=== PATIENT | female | born 1965 | race Caucasian/White ===

== ENCOUNTER → 2017-12-30 | Outpatient (CLI) | payer OTHER ==
[2014-09-28 09:10] VITALS: BP 189/98
[~2017-12-30] MED LIST: AMLO5TAB2 PO; CARV3.122 PO; CLON2TAB2 PO; FLUO10CA13 PO; LISI40TA PO; LORA-434 PO; POTA10CA PO; PRED20TA PO; TRAM50TA PO
--- NOTE | 2017-12-30 16:59 | RAD ---
Chest, PA and Lateral: Technique: PA and lateral views of the chest were obtained. History: Chest wall pain. Comparison: 09/28/2014. Findings: The heart and pulmonary vasculature appear within normal limits. Minimal left lung base atelectasis.. The pleural margins are clear. Impression: No acute chest process is seen. Electronically signed by: Walker Perez MD (12/30/2017 4:55 PM) [id number]
== END | disposition home or self-care (01) ==
LOC: RAD 16:09
PROVIDERS: ATTEND Physician Assistant Medical
DX: J98.11 Atelectasis (principal)
CPT/HCPCS: 71046

== ENCOUNTER 2018-03-24 18:20 | Observation (INO) | payer OTHER ==
[~2018-03-24] VITALS: Ht 154.9 cm; Wt 83.3 kg
[~2018-03-24 18:20] MED LIST changes: -CLON2TAB2 PO; +CLON2TAB9 PO; +LORA-254 PO; -LORA-434 PO
[2018-03-24] MEDS ORDERED: ASPIRIN 81 MG TAB.CHEW PO ONE (18:45)
[2018-03-24] MEDS ORDERED: ONDANSETRON PF 4 MG/2 ML VIAL. IV ONE (18:45)
[2018-03-24 19:10] LABS: BASO # 0.1 x10^3/uL (0.0-0.2); BASO % 1 % (0-3); EOS # 0.3 x10^3/uL (0.0-0.7); EOS % 4 % (0-3); HEMATOCRIT 31.6 % (36.0-47.0); HEMOGLOBIN 10.6 g/dL (12.0-15.5); LYMPH # 2.2 x10^3/uL (1.0-4.8); LYMPH % 30 % (24-48); MEAN CORPUSCULAR HEMOGLOBIN 30 pg (25-35); MEAN CORPUSCULAR HGB CONC 34 g/dL (31-37); MEAN CORPUSCULAR VOLUME 90 fL (79-100); MONO # 0.4 x10^3/uL (0.0-1.1); MONO % 6 % (0-9); NEUT # 4.4 x10^3uL (1.8-7.7); NEUT % 59 % (31-73); PLATELET COUNT 256 x10^3/uL (140-400); RED CELL DISTRIBUTION WIDTH 15.5 % (11.5-14.5); WHITE BLOOD COUNT 7.4 x10^3/uL (4.0-11.0)
[2018-03-24] MEDS: IV NORMAL SALINE 1,000ML 1,000 ML IV SCH ×3 (19:30→20:38)
[2018-03-24 19:32] LABS: ALBUMIN 3.3 g/dL (3.4-5.0); ALBUMIN/GLOBULIN RATIO 0.7 (1.0-1.7); ALK PHOS 119 U/L (46-116); ALT (SGPT) 54 U/L (14-59); ANION GAP 17 (6-14); AST (SGOT) 113 U/L (15-37); BLOOD UREA NITROGEN 15 mg/dL (7-20); BUN/CREATININE RATIO 17 (6-20); CALCIUM 9.9 mg/dL (8.5-10.1); CARBON DIOXIDE 20 mmol/L (21-32); CHLORIDE 100 mmol/L (98-107); CREATININE 0.9 mg/dL (0.6-1.0); GFR 65.8; GLUCOSE 196 mg/dL (70-99); MAGNESIUM 1.7 mg/dL (1.8-2.4); POTASSIUM 3.9 mmol/L (3.5-5.1); SODIUM 137 mmol/L (136-145); TOTAL BILIRUBIN 0.3 mg/dL (0.2-1.0); TOTAL PROTEIN 7.9 g/dL (6.4-8.2)
[2018-03-24] MEDS: NITROGLYCERIN SUBLINGUAL 0.4 MG BOTTLE OF 25. SL PRN (19:32)
--- NOTE | 2018-03-24 20:14 | RAD ---
PROCEDURE: PORTABLE CHEST 1V CLINICAL INDICATION: chest pain COMPARISON: 12/30/2017 FINDINGS: No pneumothorax identified. Cardiac and mediastinal contours unremarkable. No pulmonary consolidation or acute airspace disease. No acute osseous abnormalities identified. IMPRESSION: No pulmonary consolidation or acute airspace disease. Electronically signed by: Paulo Mo DO (03/24/2018 8:11 PM) [facility]
--- NOTE | 2018-03-24 20:34 | PHYS DOC ---
Past History Past Medical History: Anxiety, Bipolar, Hypertension, Renal Disease, Renal Failure, UTI, Other Past Surgical History: Hysterectomy, Other Smoking: Less than 1pk/day Alcohol Use: Rarely Drug Use: None, Cocaine Adult General Chief Complaint Chief Complaint: CHEST PAIN HPI HPI Patient is a 53 year old female who presents with complaint of chest pain. Patient states her symptoms have been present off and on over the past 4 days but states that it got much worse today. Patient states that the pain starts in her left shoulder and goes into her left chest. Patient describes pain as pressure. Patient rates her pain currently 6 out of 10. Patient states she has had associated diaphoresis and shortness of breath with her symptoms. Patient has history of diabetes, hypertension, and positive history of tobacco use. The patient has not taken any medications for her symptoms at this time. Patient denies any previous history of cardiac workup. Review of Systems Review of Systems Constitutional: Diaphoresis, denies fever or chills [] Eyes: Denies change in visual acuity, redness, or eye pain [] HENT: Denies nasal congestion or sore throat [] Respiratory: Shortness of breath[] Cardiovascular: Chest pain, denies edema[] GI: Denies abdominal pain, nausea, vomiting, bloody stools or diarrhea [] : Denies dysuria or hematuria [] Musculoskeletal: Denies back pain or joint pain [] Integument: Denies rash or skin lesions [] Neurologic: Denies headache, focal weakness or sensory changes [] All other systems were reviewed and found to be within normal limits, except as documented in this note. Current Medications Current Medications Current Medications Medications (Trade) Dose Ordered Sig/[facility] Start Time Stop Time Status Last Admin Dose Admin Aspirin (Children'S Aspirin) 324 mg 1X ONCE 03/24/18 18:45 03/24/18 18:48 DC 03/24/18 19:32 324 MG Fentanyl Citrate (Fentanyl 2ml Vial) 50 mcg PRN Q15MIN PRN 03/24/18 18:45 03/25/18 18:44 03/24/18 19:31 50 MCG Nitroglycerin (Nitrostat) 0.4 mg PRN Q5MIN PRN 03/24/18 18:45 03/25/18 18:44 03/24/18 19:32 0.4 MG Ondansetron HCl (Zofran) 4 mg 1X ONCE 03/24/18 18:45 03/24/18 18:48 DC 03/24/18 19:31 4 MG Sodium Chloride 1,000 ml @ 125 mls/hr Q8H 03/24/18 18:45 03/25/18 02:44 03/24/18 19:30 125 MLS/HR Allergies Allergies Allergies Coded Allergies Type Severity Reaction Last Updated Verified No Known Drug Allergies 03/27/14 No Physical Exam Physical Exam Constitutional: Alert, afebrile, diaphoretic, appears in mild discomfort. [] HENT: Normocephalic, atraumatic, bilateral external ears normal, oropharynx moist, no oral exudates, nose normal. [] Eyes: PERRLA, EOMI, conjunctiva normal, no discharge. [] Neck: Normal range of motion, no tenderness, supple, no stridor. [] Cardiovascular:Heart rate regular rhythm, no murmur [] Lungs & Thorax: Bilateral breath sounds clear to auscultation [] Abdomen: Bowel sounds normal, soft, no tenderness, no masses, no pulsatile masses. [] Skin: Warm, dry, no erythema, no rash. [] Back: No tenderness, no CVA tenderness. [] Extremities: No tenderness, no cyanosis, no clubbing, ROM intact, no edema. [] Neurologic: Alert and oriented X 3, normal motor function, normal sensory function, no focal deficits noted. [] Current Patient Data Vital Signs Vital Signs Date Time Temp Pulse Resp B/P (MAP) Pulse Ox O2 Delivery O2 Flow Rate FiO2 03/24/18 19:32 98 126/69 03/24/18 18:36 99.0 20 97 Lab Results Laboratory Tests Test 03/24/18 18:50 White Blood Count 7.4 x10^3/uL (4.0-11.0) Red Blood Count 3.50 x10^6/uL (3.50-5.40) Hemoglobin 10.6 g/dL (12.0-15.5) L Hematocrit 31.6 % (36.0-47.0) L Mean Corpuscular Volume 90 fL (79-100) Mean Corpuscular Hemoglobin 30 pg (25-35) Mean Corpuscular Hemoglobin Concent 34 g/dL (31-37) Red Cell Distribution Width 15.5 % (11.5-14.5) H Platelet Count 256 x10^3/uL (140-400) Neutrophils (%) (Auto) 59 % (31-73) Lymphocytes (%) (Auto) 30 % (24-48) Monocytes (%) (Auto) 6 % (0-9) Eosinophils (%) (Auto) 4 % (0-3) H Basophils (%) (Auto) 1 % (0-3) Neutrophils # (Auto) 4.4 x10^3uL (1.8-7.7) Lymphocytes # (Auto) 2.2 x10^3/uL (1.0-4.8) Monocytes # (Auto) 0.4 x10^3/uL (0.0-1.1) Eosinophils # (Auto) 0.3 x10^3/uL (0.0-0.7) Basophils # (Auto) 0.1 x10^3/uL (0.0-0.2) D-Dimer (Ayala) 0.31 mg/L (0.00-0.50) Sodium Level 137 mmol/L (136-145) Potassium Level 3.9 mmol/L (3.5-5.1) Chloride Level 100 mmol/L (98-107) Carbon Dioxide Level 20 mmol/L (21-32) L Anion Gap 17 (6-14) H Blood Urea Nitrogen 15 mg/dL (7-20) Creatinine 0.9 mg/dL (0.6-1.0) Estimated GFR (Cockcroft-Gault) 65.8 BUN/Creatinine Ratio 17 (6-20) Glucose Level 196 mg/dL (70-99) H Calcium Level 9.9 mg/dL (8.5-10.1) Magnesium Level 1.7 mg/dL (1.8-2.4) L Total Bilirubin 0.3 mg/dL (0.2-1.0) Aspartate Amino Transferase (AST) 113 U/L (15-37) H Alanine Aminotransferase (ALT) 54 U/L (14-59) Alkaline Phosphatase 119 U/L (46-116) H Creatine Kinase 33 U/L (26-192) Creatine Kinase MB (Mass) < 0.5 ng/mL (0.0-3.6) Creatine Kinase MB Relative Index 1.5 % (0-4) Troponin I Quantitative < 0.017 ng/mL (0-0.055) Total Protein 7.9 g/dL (6.4-8.2) Albumin 3.3 g/dL (3.4-5.0) L Albumin/Globulin Ratio 0.7 (1.0-1.7) L EKG EKG Interpreted by me: Heart rate 94, sinus rhythm, normal intervals, normal axis, T -wave inversions in the precordial leads V2 through V5 not present on previous EKG, no acute ST elevations or depressions[] Radiology/Procedures Radiology/[place] [address] IMAGING REPORT Signed PATIENT: GIAN ROSEN ACCOUNT: [id number] : 1965 LOCATION: ER AGE: 53 SEX: F EXAM STATUS: REG ER ORD. PHYSICIAN: JAJA SELBY MD REASON: chest pain PROCEDURE: PORTABLE CHEST 1V PROCEDURE: PORTABLE CHEST 1V CLINICAL INDICATION: chest pain COMPARISON: 12/30/2017 FINDINGS: No pneumothorax identified. Cardiac and mediastinal contours unremarkable. No pulmonary consolidation or acute airspace disease. No acute osseous abnormalities identified. IMPRESSION: No pulmonary consolidation or acute airspace disease. Electronically signed by: Paulo Mo DO (03/24/2018 8:11 PM) [facility] DICTATED AND SIGNED BY: PAULO MO DO DATE: 03/24/182007 CC: AJJA SELBY MD; ROBEL SHELTON ~ [] Course & Med Decision Making Course & Med Decision Making Pertinent Labs and Imaging studies reviewed. (See chart for details) HEART score is 6, placing patient in moderate risk category for major adverse cardiac event. The patient was treated with aspirin, nitroglycerin, and states that after treatment her pain has improved at this time. The patient will be admitted for rule out myocardial infarction. I spoke with Dr. Ness who accepted care of patient in hospital. Dragon Disclaimer Dragon Disclaimer This electronic medical record was generated, in whole or in part, using a voice recognition dictation system. Departure Departure: Impression: Primary Impression: Chest pain Additional Impressions: Hyperglycemia Hypertension Tobacco use Disposition: ADMITTED INPATIENT Admitting Physician: Darren Ness Condition: STABLE Referrals: ROBEL SHELTON (PCP) Problem Qualifiers Primary Impression: Chest pain Chest pain type: unspecified Qualified Codes: R07.9 - Chest pain, unspecified Additional Impressions: Hypertension Hypertension type: unspecified Qualified Codes: I10 - Essential (primary) hypertension JAJA SELBY MD Mar 24, 2018 20:34
[2018-03-24] MEDS ORDERED: ACETAMINOPHEN 325 MG TABLET PO PRN (20:45)
[2018-03-24] MEDS ORDERED: ONDANSETRON PF 4 MG/2 ML VIAL. IV PRN (20:45)
[2018-03-24 22:00] VITALS: BP 132/63
[2018-03-24 22:18] LABS: BILIRUBIN,URINE NEG (NEG); CLARITY,URINE HAZY; COLOR,URINE STRAW; GLUCOSE,URINE NEG (NEG)
[2018-03-24 22:19] LABS: BACTERIA,URINE FEW /HPF (0-FEW); NITRITE,URINE NEG (NEG); RBC,URINE RARE /HPF (0-2); SQUAMOUS EPITHELIAL CELL,UR FEW /LPF; UROBILINOGEN,URINE 0.2 mg/dL (0.2 mg/dL); WBC,URINE OCC /HPF (0-4)
--- NOTE | 2018-03-24 22:25 | EKG ---
[address] [address] Test Date: 2018-03-24 Test Time: 18:35:43 Pat Name: GIAN ROSEN Department: Room: [facility] 1 Gender: F [employer] Supervisor: : 1965 Requested By: JAJA SELBY Order Number: [id number] Reading MD: Wilmar Lr MD Measurements Intervals [place] Rate: 94 P: 1 NH: 138 QRS: 24 QRSD: 82 T: 61 QT: 326 QTc: 413 Interpretive Statements SINUS RHYTHM Electronically Signed On 03-25-2018 13:02:52 CDT by Wilmar Lr MD
[2018-03-25] MEDS ORDERED: LINA5TAB4 PO (00:53)
[2018-03-25] MEDS ORDERED: METF500T5 PO (00:53)
[2018-03-25] MEDS ORDERED: GEMF600T3 PO (00:53)
[2018-03-25] MEDS ORDERED: GLIM4TAB2 PO (00:53)
[2018-03-25] MEDS ORDERED: PRAV40TA2 PO (00:53)
[2018-03-25] MEDS ORDERED: INSU100I30 SQ (00:55)
[2018-03-25 02:00] VITALS: BP 103/49
[2018-03-25 06:00] VITALS: BP 108/61
[2018-03-25] MEDS: IV NORMAL SALINE 1,000ML 1,000 ML IV SCH (06:00)
[2018-03-25 06:07] LABS: CALCIUM 9.6 mg/dL (8.5-10.1); CREATININE 0.9 mg/dL (0.6-1.0); GFR 65.8; POTASSIUM 4.2 mmol/L (3.5-5.1)
[2018-03-25 06:08] LABS: BASO # 0.1 x10^3/uL (0.0-0.2); BASO % 1 % (0-3); EOS # 0.3 x10^3/uL (0.0-0.7); EOS % 5 % (0-3); HEMOGLOBIN 9.7 g/dL (12.0-15.5); LYMPH % 31 % (24-48); MEAN CORPUSCULAR HEMOGLOBIN 30 pg (25-35); MEAN CORPUSCULAR HGB CONC 33 g/dL (31-37); MEAN CORPUSCULAR VOLUME 91 fL (79-100); MONO # 0.5 x10^3/uL (0.0-1.1); MONO % 7 % (0-9); NEUT # 3.6 x10^3uL (1.8-7.7); NEUT % 56 % (31-73); PLATELET COUNT 229 x10^3/uL (140-400); RED CELL DISTRIBUTION WIDTH 15.5 % (11.5-14.5); WHITE BLOOD COUNT 6.5 x10^3/uL (4.0-11.0)
[2018-03-25] MEDS ORDERED: DEXTROSE 50% 25 GM / 50ML DISP.SYRIN. IV PRN (07:00)
[2018-03-25] MEDS ORDERED: GEMFIBROZIL 600 MG TABLET. PO SCH (08:15)
[2018-03-25] MEDS ORDERED: metFORMIN 500 MG TABLET PO SCH (08:15)
[2018-03-25] MEDS ORDERED: FLUoxetine HCL 20 MG CAPSULE PO SCH (09:00)
[2018-03-25] MEDS ORDERED: CARVEDILOL 3.125 MG TABLET PO SCH (09:00)
[2018-03-25] MEDS ORDERED: INSULIN GLARGINE 300 UNITS/3 ML INSULN.PEN. SQ SCH ×2 (09:00→21:00)
[2018-03-25] MEDS ORDERED: GLIMEPIRIDE 2 MG TABLET PO SCH (09:00)
[2018-03-25] MEDS ORDERED: LINAGLIPTIN 5 MG TABLET PO SCH (09:00)
[2018-03-25 10:46] VITALS: BP 139/62
--- NOTE | 2018-03-25 12:07 | HP ---
ADMIT DATE: 03/24/2018 HISTORY OF PRESENT ILLNESS: The patient is a 53-year-old female patient who came to the Emergency Room complaining of left-sided chest pain, mostly around her left shoulder and the left side of the chest. She described the pain as a pressure that has been present off and on over the last 4 days that got worse and therefore, she came to the Emergency Room for further evaluation. She denied any nausea or vomiting. Denied any diaphoresis. Did complain of some shortness of breath. Denied any cough, phlegm or hemoptysis. She has never had similar symptoms like this before, has never had previous heart attack. The pain is not aggravated by exertion or change in position or moving her left upper extremity. She was evaluated in the Emergency Room. She has had her first set of cardiac enzymes that showed a troponin to be less than 0.017. Her EKG showed that she was in normal sinus rhythm at a heart rate of 94 beats per minute with T-wave inversion in the precordial leads, V2, 3, 5, not present on previous EKG, but no acute ST segment elevation or depression. The patient was admitted to do 2 more sets of cardiac enzymes and to consult the Cardiology team. PAST MEDICAL HISTORY: Significant for type 2 diabetes, hypertension, hyperlipidemia. She stated that she has had an episode of acute kidney failure that required hemodialysis about 3-4 years ago at [facility] after which her kidney function has improved. PAST SURGICAL HISTORY: Significant for tonsillectomy, tubal ligation, and total abdominal hysterectomy. ALLERGIES: She has no known drug allergies. MEDICATIONS: She is currently on following medications: She is on gemfibrozil 600 mg twice a day, pravastatin 40 mg at bedtime, carvedilol 3.125 mg twice a day with meals, fluoxetine 60 mg daily, metformin 500 mg twice a day, linagliptin or Tradjenta 5 mg tablet once a day. She is on Tresiba 20 units daily and glimepiride 4 mg daily. FAMILY HISTORY: She is adopted. Does not know her biological parents. SOCIAL HISTORY: She is . She has 4 daughters and 2 sons. She smokes a pack in a week's time. She used to drink alcohol more, but now occasionally. She does not smoke marijuana anymore. 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 REVIEW OF SYSTEMS: The patient denied any blurring of vision, cataract, glaucoma or macular degeneration. Denied any earache, tinnitus or sensorineural deafness. Denied any nosebleeds, stuffy nose or postnasal drip. Denied any sore throat, sore tongue, toothache, hoarseness of voice or difficulty swallowing. Denied any nausea, vomiting, diarrhea or constipation. Denied any hematemesis, melena or hematochezia. Denied any dysuria, frequency or hematuria. Did complain of left-sided chest pain, but denied any orthopnea or paroxysmal nocturnal dyspnea. Denied any cough, phlegm or hemoptysis. PHYSICAL EXAMINATION: GENERAL: On arrival to the Emergency Room, she looked well and was clearly in no apparent respiratory distress. She was slightly pale, but no jaundice, cyanosis, or thyromegaly. No jugular venous distension. No lower limb edema. VITAL SIGNS: Her heart rate was 102, blood pressure 122/59, temperature was 98.6, respiratory rate was 22, and oxygen saturation was 95% on room air. HEAD, EYES, EARS, NOSE AND THROAT: Showed normocephalic, atraumatic. NECK: Supple. HEART: Showed normal first and second heart sounds. No gallop, rub or murmur. CHEST: Clear to auscultation. No crepitation or rhonchi. ABDOMEN: Slightly distended, soft, nontender. NEUROLOGIC: She was awake, alert, responding appropriately. Cranial nerves intact. EXTREMITIES: She moves extremities without difficulty. She ambulates without assistance or assistive devices. LABORATORY DATA: On admission showed a white cell count of 7400, hemoglobin 10.6, hematocrit 31.6, MCV 90 and platelet count 256,000 with normal manual differential. Serum sodium was 137, potassium 3.9, chloride 100, bicarbonate 20, anion gap of 17, BUN 15, creatinine 0.9, estimated GFR was 66 mL per minute. Her glucose 196, calcium was 9.9, magnesium was 1.7. Total bilirubin and ALT normal. AST and alkaline phosphatase slightly elevated. Her total protein was 7.9, albumin 3.3. First set of cardiac enzymes showed troponin to be less than 0.017. Her D-dimer was 0.31 mg/dL. Urinalysis was essentially unremarkable. ASSESSMENT AND PLAN: This is a 53-year-old female patient with multiple risk factors for coronary artery disease including diabetes, hypertension, and hyperlipidemia. She is a smoker. She came with fairly atypical left-sided chest pain, mostly around her left shoulder and upper part of the left chest that is not related to exertion, it is not aggravated by changes in position or moving her left upper extremity. In fact, it has not responded to nitroglycerin, but responded to fentanyl and makes it more likely to be musculoskeletal. Her first set of cardiac enzyme was normal. We will do 2 more sets of cardiac enzyme and consult the Cardiology team. JT NOVA MD DR: TESSA/chico JOB#: [id number] / [id number]
--- NOTE | 2018-03-25 13:07 | PDOC ---
PROVIDER NOTE PROVIDER NOTE PROVIDER NOTE Cardiology consultation note Reason for consultation: Chest pain History of present illness: 53-year-old woman coming into the hospital in the setting of left shoulder pain. Denies any previous cardiac history. No exertional angina, dyspnea, orthopnea or PND. No syncope or palpitations.She denied any nausea or vomiting. Denied any diaphoresis. Did complain of some shortness of breath. No change with position or exertion. Past medical history notable for diabetes, hypertension dyslipidemia SOCIAL HISTORY: She is . She has 4 daughters and 2 sons. She smokes a pack in a week's time. She used to drink alcohol more, but now occasionally. She does not smoke marijuana anymore. 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 Meds reviewed. Family history noncontributory Review systems negative for 10 out of 14 systems reviewed unless otherwise mentioned above in history of present illness The patient appeared well nourished and normally developed. Head exam is unremarkable. No scleral icterus or corneal arcus noted. Neck is without jugular venous distension, thyromegaly, or carotid bruits. Carotid upstrokes are brisk bilaterally. Lungs are clear to auscultation and percussion. Cardiac exam reveals the PMI to be normally sized and situated. Rhythm is regular. First and second heart sounds normal. No murmurs, rubs or gallops. Abdominal exam reveals normal bowel sounds, no masses, no organomegaly and no aortic enlargement. Extremities are nonedematous and both femoral and pedal pulses are normal. Msk: No traumua, she has significant pain to palpation of the AC joint left side Neuro: No focal deficits Diagnostic studies: EKG is unremarkable LDL 166 Enzymes negative 3 Impression: 1. Noncardiac chest pain 2. Hypertension 3. Dyslipidemia 4. Diabetes Recommendations: 1. We'll treat her left shoulder pain with conservative management (rest, ice etc). If this does not improve her symptoms over the next few days then could consider outpatient stress testing in light of her risk factors. Given his consultation. Okay to discharge later today. EMILY ALEXIS MD Mar 25, 2018 13:07
--- NOTE | 2018-03-25 17:48 | DS ---
DATE OF DISCHARGE: 03/25/2018 HISTORY OF PRESENT ILLNESS: The patient is a 53-year-old female patient, who was admitted with the left-sided chest pain that has been ongoing for the last few days. It is not exertional. Denied any shortness of breath, orthopnea, paroxysmal nocturnal dyspnea. Denied any diaphoresis, nausea or vomiting. The pain is not worsened by exertion, change in position or moving her left upper extremity. She was admitted and has had 3 sets of cardiac enzymes that were negative and ruled out myocardial infarction. She was seen by the automotive service professional, who basically recommended to discharge the patient and to consider alteration of lifestyle for risk management adjustment and that she could have an outpatient stress test in the light of her risk factors. The patient was discharged home to continue on Tylenol for pain management. PHYSICAL EXAMINATION: GENERAL: On examining her, she looked well and was clearly in no apparent respiratory distress. No pallor, jaundice, cyanosis, or thyromegaly. No jugular venous distension. No limb edema. VITAL SIGNS: Her heart rate was 68, blood pressure was 139/62, temperature was 98.5, respiratory rate was 20, and oxygen saturation was 97%. HEAD, EYES, EARS, NOSE AND THROAT: Showed normocephalic, atraumatic. NECK: Supple. HEART: Showed normal first and second heart sound, no gallop, rub or murmur. CHEST: Clear to auscultation. No crepitation or rhonchi. ABDOMEN: Distended, soft, nontender. No guarding or rigidity. No organomegaly. All hernial orifice intact. Bowel sounds normal. NEUROLOGIC: She is awake, alert, responding appropriately. All cranial nerves intact. She moves extremities without difficulty. She ambulates without assistance or assistive devices. LABORATORY DATA: This morning showed a serum sodium 137, potassium 4.2, chloride 102, bicarbonate 27, anion gap of 8, BUN 17, creatinine 0.9, estimated GFR was 66 mL per minute. Her glucose 172, calcium was 9.6. She has 3 sets of cardiac enzymes that ruled out myocardial infarction. Her white cell count was 6500, hemoglobin 10, hematocrit 30, MCV 91, and platelet count 229,000. MEDICATIONS: She was discharged home to continue on her carvedilol 3.125 mg twice a day, fluoxetine for Prozac 60 mg once a day, gemfibrozil 600 mg twice a day, glimepiride 4 mg daily. She is on Tresiba, FlexTouch 20 units subcutaneously daily, linagliptin for Tradjenta 5 mg once a day, metformin 500 mg twice a day, Pravastatin 40 mg at bedtime. FINAL DISCHARGE DIAGNOSES: Chest pain, probably musculoskeletal, does not seem to be cardiac. OTHER MEDICAL PROBLEMS: Include hypertension, hyperlipidemia, type 2 diabetes, has a previous history of acute kidney injury, required hemodialysis and her kidney function has since improved and her kidney function is back to normal. JT NOVA MD DR: TESSA/chico JOB#: [id number] / [id number]
[2018-03-25] MEDS ORDERED: PRAVASTATIN 20 MG TABLET. PO SCH (21:00)
== END 2018-03-25 15:32 | disposition home or self-care (01) ==
LOC: ER 18:20 → INTOOBSV 20:23 → ICU 20:23
PROVIDERS: ADMIT Internal Medicine; ATTEND Internal Medicine
DX: R07.89 Other chest pain (principal); E11.9 Type 2 diabetes mellitus without complications; I10 Essential (primary) hypertension; E78.5 Hyperlipidemia, unspecified; F17.200 Nicotine dependence, unspecified, uncomplicated; Z87.440 Personal history of urinary (tract) infections; Z90.710 Acquired absence of both cervix and uterus
CPT/HCPCS: 36415; 71045; 80048; 80053; 81001; 82553; 82947; 83735; 84484; 85025; 85379; 87641; 93005; 96374; 96375; 96376; 99285; G0378; J2405; J3010; 96361; G0379; J1815; J7030

== ENCOUNTER 2018-06-01 12:08 | Emergency (ER) | payer OTHER ==
[~2018-06-01 12:08] MED LIST changes: -AMLO5TAB2 PO; +AMLO5TAB7 PO; +GEMF600T4 PO; +GLIM4TAB2 PO; +INSU100I30 SQ; +LINA5TAB4 PO; +METF500T16 PO; +PRAV40TA2 PO
[2018-06-01] MEDS ORDERED: IV NORMAL SALINE 1,000ML 1,000 ML IV ONE (12:30)
[2018-06-01 12:46] LABS: BASO # 0.1 x10^3/uL (0.0-0.2); BASO % 1 % (0-3); EOS # 0.3 x10^3/uL (0.0-0.7); EOS % 5 % (0-3); HEMATOCRIT 37.3 % (36.0-47.0); HEMOGLOBIN 12.7 g/dL (12.0-15.5); LYMPH # 1.5 x10^3/uL (1.0-4.8); LYMPH % 25 % (24-48); MEAN CORPUSCULAR HEMOGLOBIN 30 pg (25-35); MEAN CORPUSCULAR HGB CONC 34 g/dL (31-37); MEAN CORPUSCULAR VOLUME 89 fL (79-100); MONO # 0.4 x10^3/uL (0.0-1.1); MONO % 7 % (0-9); NEUT # 3.7 x10^3uL (1.8-7.7); NEUT % 62 % (31-73); PLATELET COUNT 303 x10^3/uL (140-400); RED CELL DISTRIBUTION WIDTH 14.1 % (11.5-14.5)
--- NOTE | 2018-06-01 12:54 | PHYS DOC ---
Past History Past Medical History: Anxiety, Bipolar, Depression, Diabetes, High Cholesterol , Hypertension, Renal Disease, Renal Failure, UTI, Other Past Surgical History: Hysterectomy, Tonsillectomy, Tubal ligation Smoking: Less than 1pk/day Alcohol Use: Rarely Drug Use: None, Cocaine Adult General Chief Complaint Chief Complaint: OVERDOSE HPI HPI 53-year-old female presents with concern for accidental medication overdose. The patient woke up this morning and took her pills and then took her kids to school. After she came back she forgot that she took her pills and took a second round of pills. She took 2 doses of the following medications: Trajenta 5 mg, fluoxetine 60 mg, gemfibrozil 600 mg, carvedilol 3.125 mg, glimepiride 4 mg, will certain 25 mg, metformin 500 mg. Patient denies any intentional overdose. She called her PCP who gave her the option of coming to the emergency room to be checked out or staying at home to see if she became symptomatic. She elected to come the emergency room. Patient states she is feeling well at this time. Her blood sugar was greater than 200 on arrival. She has no other complaints. Review of Systems Review of Systems Constitutional: Denies fever or chills [] Eyes: Denies change in visual acuity, redness, or eye pain [] HENT: Denies nasal congestion or sore throat [] Respiratory: Denies cough or shortness of breath [] Cardiovascular: No additional information not addressed in HPI [] GI: Denies abdominal pain, nausea, vomiting, bloody stools or diarrhea [] : Denies dysuria or hematuria [] Musculoskeletal: Denies back pain or joint pain [] Integument: Denies rash or skin lesions [] Neurologic: Denies headache, focal weakness or sensory changes [] Endocrine: Denies polyuria or polydipsia [] All other systems were reviewed and found to be within normal limits, except as documented in this note. Current Medications Current Medications Current Medications Medications (Trade) Dose Ordered Sig/Wei Start Time Stop Time Status Last Admin Dose Admin Sodium Chloride 1,000 ml @ 1,000 mls/hr 1X ONCE 06/01/18 12:30 06/01/18 13:29 06/01/18 12:42 1,000 MLS/HR Allergies Allergies Allergies Coded Allergies Type Severity Reaction Last Updated Verified No Known Drug Allergies 03/27/14 No Physical Exam Physical Exam Constitutional: Well developed, obese, well nourished, no acute distress, non- toxic appearance. [] HENT: Normocephalic, atraumatic, bilateral external ears normal, oropharynx moist, no oral exudates, nose normal. [] Eyes: PERRLA, EOMI, conjunctiva normal, no discharge. [] Neck: Normal range of motion, no tenderness, supple, no stridor. [] Cardiovascular:Heart rate regular rhythm, no murmur [] Lungs & Thorax: Bilateral breath sounds clear to auscultation [] Abdomen: Bowel sounds normal, soft, no tenderness, no masses, no pulsatile masses. [] Skin: Warm, dry, no erythema, no rash. [] Back: No tenderness, no CVA tenderness. [] Extremities: No tenderness, no cyanosis, no clubbing, ROM intact, no edema. [] Neurologic: Alert and oriented X 3, normal motor function, normal sensory function, no focal deficits noted. [] Psychologic: Affect normal, judgement normal, mood anxious. [] Current Patient Data Vital Signs Vital Signs Date Time Temp Pulse Resp B/P (MAP) Pulse Ox O2 Delivery O2 Flow Rate FiO2 06/01/18 12:08 98.2 98 18 99 Room Air EKG EKG [] Radiology/Procedures Radiology/Procedures [] Course & Med Decision Making Course & Med Decision Making Pertinent Labs and Imaging studies reviewed. (See chart for details) The patient's labs are unremarkable except for an elevated blood sugar. Her blood pressure has remained stable during her time in the ED. I believe the patient can be safely discharged at this time. If she has any new or worsening symptoms develop, she will return to the emergency room. The patient is in agreement with this plan. [] Dragon Disclaimer Dragon Disclaimer This electronic medical record was generated, in whole or in part, using a voice recognition dictation system. Departure Departure: Referrals: ROBEL SHELTON (PCP) LESLEY LARSEN DO Jun 01, 2018 12:54
[2018-06-01 12:59] LABS: ALBUMIN 3.7 g/dL (3.4-5.0); ALBUMIN/GLOBULIN RATIO 0.7 (1.0-1.7); CALCIUM 10.3 mg/dL (8.5-10.1); GFR 58.2; POTASSIUM 4.1 mmol/L (3.5-5.1); TOTAL BILIRUBIN 0.4 mg/dL (0.2-1.0); TOTAL PROTEIN 9.1 g/dL (6.4-8.2)
[2018-06-01 14:15] VITALS: BP 125/68
== END 2018-06-01 14:19 | disposition home or self-care (01) ==
LOC: ER 12:08
DX: E11.65 Type 2 diabetes mellitus with hyperglycemia (principal); T43.221A Poisoning by selective serotonin reuptake inhibitors, accidental (unintentional), initial encounter; T46.6X1A Poisoning by antihyperlipidemic and antiarteriosclerotic drugs, accidental (unintentional), initial encounter; T44.7X1A Poisoning by beta-adrenoreceptor antagonists, accidental (unintentional), initial encounter; T38.3X1A Poisoning by insulin and oral hypoglycemic [antidiabetic] drugs, accidental (unintentional), initial encounter; F41.9 Anxiety disorder, unspecified; F31.9 Bipolar disorder, unspecified; E78.00 Pure hypercholesterolemia, unspecified; I10 Essential (primary) hypertension; N28.9 Disorder of kidney and ureter, unspecified; F17.200 Nicotine dependence, unspecified, uncomplicated; Y92.89 Other specified places as the place of occurrence of the external cause
CPT/HCPCS: 36415; 80053; 82947; 85025; 96360; 96361; 99285-25; J7030

== ENCOUNTER 2020-01-27 04:32 | Emergency (ER) | payer OTHER ==
[~2020-01-27] VITALS: Ht 154.9 cm; Wt 81.1 kg
[~2020-01-27 04:32] MED LIST changes: +AMLO5TAB10 PO; -AMLO5TAB7 PO; -CARV3.122 PO; +CARV3.1230 PO; -GEMF600T4 PO; +GEMF600T8 PO; -GLIM4TAB2 PO; +GLIM4TAB8 PO
--- NOTE | 2020-01-27 04:57 | PHYS DOC ---
Past History Past Medical History: Anxiety, Bipolar, Depression, Diabetes, High Cholesterol, Hypertension, Renal Disease, Renal Failure, UTI, Other (LESLEY LARSEN DO) Past Surgical History: Hysterectomy, Tonsillectomy, Tubal ligation (LESLEY LARSEN DO) Smoking: Less than 1pk/day Alcohol Use: Occasionally Drug Use: None, Cocaine (LESLEY LARSEN DO) General Adult EDM: Chief Complaint: CHEST PAIN HPI: HPI: 55-year-old female presents with chest pain and rapid heartbeat. The patient woke up out of sleep around 3 AM and felt like she had a very rapid heartbeat. She also had a light pressure/cramping sensation in the left side of her chest. This persisted for at least several minutes. Her heart rate now feels normal, but she still having intermittent episodes of pain that lasts for a few minutes. She describes them as mild. She was just really worried when she woke up and thought she should get evaluated. Patient has hypertension and diabetes. No history of heart disease or heart attacks. She does admit that she has had episodes similar to this that are less severe. It always seems to happen at night and she feels a rapid heartbeat when she first wakes up. No diagnosis of arrhythmia. She denies fever chills. She has been feeling more fatigued in general lately. She just had her dose of losartan doubled 2 weeks ago. They also changed her insulin around. (LESLEY LARSEN DO) Review of Systems: Review of Systems: Constitutional: Denies fever or chills Eyes: Denies change in visual acuity HENT: Denies nasal congestion or sore throat Respiratory: Denies cough or shortness of breath Cardiovascular: Chest pain, rapid heartbeat GI: Denies abdominal pain, nausea, vomiting, bloody stools or diarrhea : Denies dysuria Musculoskeletal: Denies back pain or joint pain Integument: Denies rash Neurologic: Denies headache, focal weakness or sensory changes Endocrine: Denies polyuria or polydipsia Lymphatic: Denies swollen glands Psychiatric: Denies depression or anxiety (LESLEY LARSEN DO) Heart Score: HEART Score for Chest Pain: HEART Score for Chest Pain Response (Comments) Value History Slighlty/Non-Suspicious 0 ECG Normal 0 Age >45 - < 65 1 Risk Factors 1 or 2 Risk Factors 1 Troponin < Normal Limit 0 Total 2 Risk Factors: Risk Factors: DM, Current or recent (<one month) smoker, HTN, HLP, family history of CAD, obesity. Risk Scores: Score 0 - 3: 2.5% MACE over next 6 weeks - Discharge Home Score 4 - 6: 20.3% MACE over next 6 weeks - Admit for Clinical Observation Score 7 - 10: 72.7% MACE over next 6 weeks - Early Invasive Strategies (LESLEY LARSEN DO) HEART Score for Chest Pain: HEART Score for Chest Pain Response (Comments) Value History Slighlty/Non-Suspicious 0 ECG Normal 0 Age >45 - < 65 1 Risk Factors >3 Risk Factors or Hx CAD 2 Troponin < Normal Limit 0 Total 3 Allergies: Allergies: Allergies Coded Allergies Type Severity Reaction Last Updated Verified No Known Drug Allergies 03/27/14 No (LESLEY LARSEN DO) Physical Exam: PE: Constitutional: Well developed, obese, well nourished, no acute distress, non- toxic appearance. [] HENT: Normocephalic, atraumatic, bilateral external ears normal, oropharynx [address], no oral exudates, nose normal. [] Eyes: PERRLA, EOMI, conjunctiva normal, no discharge. [] Neck: Normal range of motion, no tenderness, supple, no stridor. [] Cardiovascular: Heart rate 90, regular rhythm, no murmur [] Lungs & Thorax: Bilateral breath sounds clear to auscultation [] Abdomen: Bowel sounds normal, soft, no tenderness, no masses, no pulsatile masses. [] Skin: Warm, dry, no erythema, no rash. [] Back: No tenderness, no CVA tenderness. [] Extremities: No tenderness, no cyanosis, no clubbing, ROM intact, no edema. [] Neurologic: Alert and oriented X 3, normal motor function, normal sensory function, no focal deficits noted. [] Psychologic: Affect normal, judgement normal, mood normal. [] (LESLEY LARSEN DO) PE: Constitutional: Well developed, well nourished, no acute distress, non-toxic appearance HENT: Normocephalic, atraumatic Eyes: Conjunctiva normal, no discharge Neck: Normal range of motion, no tenderness, supple Cardiovascular: Heart rate normal, regular rhythm Lungs & Thorax: Bilateral breath sounds clear to auscultation, no wheezing Abdomen: Soft, no tenderness Skin: Warm, dry, no erythema, no rash Extremities: No tenderness, ROM intact, no edema Neurologic: Alert and oriented X 3, no focal deficits noted Psychologic: Affect normal, judgment normal (PB MELLO DO) Current Patient Data: Vital Signs: Vital Signs Date Time Temp Pulse Resp B/P (MAP) Pulse Ox O2 Delivery O2 Flow Rate FiO2 01/27/20 04:46 98.2 102 20 139/90 (106) 97 Room Air (LESLEY LARSEN DO) EKG: EKG: Sinus rhythm, rate 96, normal axis, no ST elevations or depressions. [] (LESLEY LARSEN DO) Radiology/Procedures: Radiology/Procedures: [] (LESLEY LARSEN DO) Course & Med Decision Making: Course & Med Decision Making Pertinent Labs and Imaging studies reviewed. (See chart for details) The patient's labs are significant for slightly elevated anion gap 16. She also with a blood sugar over 450. Her EKG is unremarkable. Her troponin is negative. I will give her 10 units of insulin IV as well as a liter of normal saline. Her urinalysis is negative for infection. Her CBC is normal. If the patient's blood sugar rapidly improved, I believe she could be discharged home. We will just have to wait and see. I am signing the patient out to Dr. Mello at 0600 for further management. He will determine her final disposition. [] (LESLEY LARSEN DO) Course & Med Decision Making 0600- Sign out received from Dr. Larsen for patient who presents with chest pain and found to be hyperglycemic. Labs and imaging reviewed. Troponin WNL. CXR stable. EKG without acute process. HEART score 3. Hyperglycemia also noted. Insulin and IVF hydration provided with interval improvement. Recheck glucose with improvement. Patient seen and evaluated by myself. Patient stable for discharge with outpatient follow-up with PCP/nanotechnician. Spa Director/Finance referral provided. Discussed findings and plan with patient, who acknowledges understanding and agreement. (PB MELLO DO) Cassidy Disclaimer: Cassidy Disclaimer: This electronic medical record was generated, in whole or in part, using a voice recognition dictation system. (LESLEY LARSEN DO) Departure Departure: Impression: Primary Impression: Hyperglycemia due to type 2 diabetes mellitus Qualified Codes: E11.65 - Type 2 diabetes mellitus with hyperglycemia; Z79.4 - residential (current) use of insulin Additional Impression: Chest pain Qualified Codes: R07.9 - Chest pain, unspecified Disposition: 01 HOME/RESIDENCE PRIOR TO ADM Condition: STABLE Referrals: ROBLE SHELTON (PCP) EMILY ALEXIS MD Patient Instructions: Chest Pain (Nonspecific), [id number], Diet - 2000 Calorie Diabetic, Hyperglycemia, [id number] Additional Instructions: Increase fluid hydration and strict adherence to diabetic diet. Follow with your PCP as previously scheduled. Justification of Admission: Justification of Admission: Justification of Admission Dx: N/A (LESLEY LARSEN DO) Justification of Admission Dx: N/A (PB MELLO DO) LESLEY LARSEN DO Jan 27, 2020 04:57 PB MELLO DO Jan 27, 2020 06:25
--- NOTE | 2020-01-27 05:13 | RAD ---
AP chest. HISTORY: Chest pain AP view was taken of the chest. Lungs are clear. Heart is normal in size. There is no pleural effusion. IMPRESSION: 1. No acute chest disease. Electronically signed by: Stiven Vela MD (01/27/2020 5:10 AM) [id number]
[2020-01-27 05:24] LABS: BASO # 0.1 x10^3/uL (0.0-0.2); BASO % 1 % (0-3); EOS # 0.1 x10^3/uL (0.0-0.7); EOS % 2 % (0-3); HEMATOCRIT 41.5 % (36.0-47.0); HEMOGLOBIN 14.1 g/dL (12.0-15.5); LYMPH # 2.4 x10^3/uL (1.0-4.8); LYMPH % 43 % (24-48); MEAN CORPUSCULAR HEMOGLOBIN 31 pg (25-35); MEAN CORPUSCULAR HGB CONC 34 g/dL (31-37); MEAN CORPUSCULAR VOLUME 91 fL (79-100); MONO # 0.2 x10^3/uL (0.0-1.1); MONO % 4 % (0-9); NEUT # 2.8 x10^3uL (1.8-7.7); NEUT % 50 % (31-73); PLATELET COUNT 235 x10^3/uL (140-400); RED BLOOD COUNT 4.57 x10^6/uL (3.50-5.40); RED CELL DISTRIBUTION WIDTH 13.9 % (11.5-14.5); WHITE BLOOD COUNT 5.6 x10^3/uL (4.0-11.0)
[2020-01-27 05:30] LABS: CLARITY,URINE CLEAR; COLOR,URINE STRAW; GLUCOSE,URINE 500 mg/dL (NEG)
[2020-01-27 05:30] LABS: CALCIUM 10.6 mg/dL (8.5-10.1); CREATININE 1.1 mg/dL (0.6-1.0); GFR 51.8; POTASSIUM 3.4 mmol/L (3.5-5.1)
[2020-01-27 05:31] LABS: BACTERIA,URINE FEW /HPF (0-FEW); BILIRUBIN,URINE NEG (NEG); NITRITE,URINE NEG (NEG); RBC,URINE OCC /HPF (0-2); SQUAMOUS EPITHELIAL CELL,UR FEW /LPF; UROBILINOGEN,URINE 0.2 mg/dL (0.2 mg/dL); WBC,URINE OCC /HPF (0-4)
[2020-01-27 05:36] LABS: ALBUMIN 3.3 g/dL (3.4-5.0); ALBUMIN/GLOBULIN RATIO 0.7 (1.0-1.7); TOTAL BILIRUBIN 0.5 mg/dL (0.2-1.0); TOTAL PROTEIN 8.1 g/dL (6.4-8.2)
[2020-01-27] MEDS ORDERED: KETOROLAC 30 MG/ML VIAL. IVP ONE (05:45)
[2020-01-27] MEDS ORDERED: INSULIN REGULAR 100 UNIT/ML 3ML VIAL. IV ONE (05:45)
[2020-01-27] MEDS ORDERED: IV NORMAL SALINE 1,000ML 1,000 ML IV ONE (06:00)
[2020-01-27 06:17] VITALS: BP 129/57
--- NOTE | 2020-01-27 18:20 | EKG ---
[address] [address] Test Date: 2020-01-27 Test Time: 04:38:53 Pat Name: GIAN ROSEN Department: Room: Gender: F Tester Sound: : 1965 Requested By: LESLEY LARSEN Order Number: [id number] Reading MD: Measurements Intervals [place] Rate: 96 P: 38 LA: 152 QRS: 29 QRSD: 88 T: 43 QT: 354 QTc: 454 Interpretive Statements SINUS RHYTHM LEFT ATRIAL ABNORMALITY ABNORMAL ECG RI6.02 No previous ECG available for comparison
== END 2020-01-27 06:30 | disposition home or self-care (01) ==
LOC: ER 04:32
DX: E11.65 Type 2 diabetes mellitus with hyperglycemia (principal); R07.89 Other chest pain; E11.22 Type 2 diabetes mellitus with diabetic chronic kidney disease; I12.9 Hypertensive chronic kidney disease with stage 1 through stage 4 chronic kidney disease, or unspecified chronic kidney disease; N18.9 Chronic kidney disease, unspecified; F41.9 Anxiety disorder, unspecified; F31.9 Bipolar disorder, unspecified; F17.200 Nicotine dependence, unspecified, uncomplicated; Z87.440 Personal history of urinary (tract) infections; Z79.4 Long term (current) use of insulin
CPT/HCPCS: 36415; 71045; 80053; 81001; 82947; 84484; 85025; 93005; 96361; 96374; 96375; 99285; J1815; J1885; J7030

== ENCOUNTER 2020-01-30 17:07 | Emergency (ER) | payer OTHER ==
[~2020-01-30] VITALS: Ht 154.9 cm; Wt 81.1 kg
[2020-01-30 17:10] VITALS: BP 134/80
--- NOTE | 2020-01-30 17:25 | PHYS DOC ---
Past History Past Medical History: Anxiety, Bipolar, Depression, Diabetes, High Cholesterol, Hypertension, Renal Disease, Renal Failure, UTI, Other (MIRZA ASHER MD) Past Surgical History: Hysterectomy, Tonsillectomy, Tubal ligation (MIRZA ASHER MD) Smoking: Less than 1pk/day Alcohol Use: Occasionally Drug Use: None, Cocaine (MIRZA ASHER MD) General Adult EDM: Chief Complaint: BLOOD SUGAR PROBLEM HPI: HPI: Patient presents to the emergency department for evaluation. She has a history of diabetes, among other health problems, and states that she had been on 3 oral hypoglycemic medications as well as a long-acting insulin. However, about a year ago, her insurance company changed, and her medications were no longer covered and she has neither taken any of her oral diabetes medications, or checked her blood sugar for approximately a year. She states that she reestablish care with her PCP on Tuesday and had a blood sugar that was over 400. In addition to her long-acting insulin, which she reports intermittent com pliance with, her doctor added a short acting insulin which was supposed to be called into the patient's pharmacy, but the patient states that there was no prescription available at the pharmacy, and the patient states her blood sugar has been running between the upper 300s in the upper 400s for the past 2 days. Other than the polyuria, which has been ongoing for a while, she has not had any other complaints. She denies any chest pain, headache, vision changes, numbness, or weakness. She has had increasing anxiety, relating to her high blood sugar, as she is worried about the long-term effects. There are no alleviating or exacerbating factors to her symptoms. (MIRZA ASHER MD) Review of Systems: Review of Systems: Constitutional: Denies fever or chills Eyes: Denies change in visual acuity HENT: Denies nasal congestion or sore throat Respiratory: Denies cough or shortness of breath Cardiovascular: Denies chest pain or edema GI: Denies abdominal pain, nausea, vomiting, bloody stools or diarrhea : Denies dysuria Musculoskeletal: Denies back pain or joint pain Integument: Denies rash Neurologic: Denies headache, focal weakness or sensory changes Endocrine: Reports polyuria and polydipsia Lymphatic: Denies swollen glands Psychiatric: Denies depression. Reports increased anxiety (MIRZA ASHER MD) Heart Score: Risk Factors: Risk Factors: DM, Current or recent (<one month) smoker, HTN, HLP, family history of CAD, obesity. Risk Scores: Score 0 - 3: 2.5% MACE over next 6 weeks - Discharge Home Score 4 - 6: 20.3% MACE over next 6 weeks - Admit for Clinical Observation Score 7 - 10: 72.7% MACE over next 6 weeks - Early Invasive Strategies (MIRZA ASHER MD) Allergies: Allergies: Allergies Coded Allergies Type Severity Reaction Last Updated Verified No Known Drug Allergies 03/27/14 No (MIRZA ASHER MD) Physical Exam: PE: PHYSICAL EXAM: CONSTITUTIONAL: Well developed, well nourished HEAD: normocephalic, atraumatic EENT: PERRL, EOMI. Conjunctivae normal color, sclerae non-icteric; moist mucous membranes. NECK: Supple, non-tender; no meningismus. LUNGS: Lungs CTA, breathing even and unlabored. Normal air movement. HEART: Regular rate and rhythm, no murmur CHEST: No deformity; non-tender ABDOMEN: The abdomen is soft, and non-tender, no masses or bruits. EXTREM: Normal ROM; no deformity, no calf tenderness. Normal pulses palpable in all extremities. There is no pedal edema. SKIN: No rash; no diaphoresis NEURO: Alert; normal speech and cognition; CN's grossly intact; strength grossly intact without focal deficit. BACK: No CVA TTP. PSYCHIATRIC: Mildly anxious affect. (MIRZA ASHER MD) Current Patient Data: Labs: Laboratory Tests Test 01/30/20 17:12 Glucose (Fingerstick) 411 mg/dL (70-99) H (MIRZA ASHER MD) Labs: Laboratory Tests Test 01/30/20 17:12 01/30/20 17:30 01/30/20 17:50 Glucose (Fingerstick) 411 mg/dL White Blood Count 6.1 x10^3/uL Red Blood Count 4.40 x10^6/uL Hemoglobin 13.7 g/dL Hematocrit 40.4 % Mean Corpuscular Volume 92 fL Mean Corpuscular Hemoglobin 31 pg Mean Corpuscular Hemoglobin Concent 34 g/dL Red Cell Distribution Width 13.9 % Platelet Count 211 x10^3/uL Neutrophils (%) (Auto) 58 % Lymphocytes (%) (Auto) 33 % Monocytes (%) (Auto) 5 % Eosinophils (%) (Auto) 3 % Basophils (%) (Auto) 1 % Neutrophils # (Auto) 3.5 x10^3uL Lymphocytes # (Auto) 2.0 x10^3/uL Monocytes # (Auto) 0.3 x10^3/uL Eosinophils # (Auto) 0.2 x10^3/uL Basophils # (Auto) 0.1 x10^3/uL Sodium Level 132 mmol/L Potassium Level 4.0 mmol/L Chloride Level 96 mmol/L Carbon Dioxide Level 20 mmol/L Anion Gap 16 Blood Urea Nitrogen 9 mg/dL Creatinine 1.0 mg/dL Estimated GFR (Cockcroft-Gault) 57.8 BUN/Creatinine Ratio 9 Glucose Level 513 mg/dL Calcium Level 8.9 mg/dL Total Bilirubin 0.4 mg/dL Aspartate Amino Transf (AST/SGOT) 129 U/L Alanine Aminotransferase (ALT/SGPT) 111 U/L Alkaline Phosphatase 163 U/L Total Protein 7.8 g/dL Albumin 3.2 g/dL Albumin/Globulin Ratio 0.7 Acetone Level Neg Urine Collection Type Unknown Urine Color Yellow Urine Clarity Clear Urine pH 6.5 Urine Specific [place] 1.010 Urine Protein 30 mg/dl Urine Glucose (UA) >=1000 mg/dL Urine Ketones (Stick) Neg mg/dL Urine Blood Trace Urine Nitrite Neg Urine Bilirubin Neg Urine Urobilinogen Dipstick 0.2 mg/dL Urine Leukocyte Esterase Neg Urine RBC Rare /HPF Urine WBC Rare /HPF Urine Squamous Epithelial Cells Occ /LPF Urine Bacteria 0 /HPF Current Medications Medications (Trade) Dose Ordered Sig/Wei Route PRN Reason Start Time Stop Time Status Last Admin Dose Admin Sodium Chloride 1,000 ml @ 1,000 mls/hr 1X ONCE IV 01/30/20 17:30 01/30/20 18:29 DC 01/30/20 17:31 Sodium Chloride 1,000 ml @ 1,000 mls/hr 1X ONCE IV 01/30/20 17:30 01/30/20 18:29 DC 01/30/20 17:45 Insulin Human Regular (HumuLIN R VIAL) 5 unit 1X ONCE IV 01/30/20 17:30 01/30/20 17:31 DC 01/30/20 17:45 (YASIR PATEL DO) EKG: EKG: [] (MIRZA ASHER MD) Radiology/Procedures: Radiology/Procedures: [] (MIRZA ASHER MD) Course & Med Decision Making: Course & Med Decision Making Pertinent Labs and Imaging studies reviewed. (See chart for details) [] 6:00 PM: Patient care was turned over to Dr. Patel at shift change, pending lab results and final disposition, and glucose recheck. Return precautions were discussed in detail. (MIRZA ASHER MD) Course & Med Decision Making 1800 Care of patient assumed at shift change. Awaiting results of labs (YASIR PATEL DO) Dragon Disclaimer: Dragon Disclaimer: This electronic medical record was generated, in whole or in part, using a voice recognition dictation system. (MIRZA ASHER MD) Dragon Disclaimer: 1900 stable and blood sugar currently 272. Patient stable for close follow-up with the doctor. She will be given both short and long-acting diabetic oral therapy. Patient active awake and alert. Patient does not in DKA (YASIR PATEL DO) Departure Departure: Impression: Primary Impression: Hyperglycemia due to diabetes mellitus Disposition: HOME/RESIDENCE PRIOR TO ADM Condition: STABLE Referrals: ROBEL SHELTON (PCP) Patient Instructions: Hyperglycemia, [id number] Additional Instructions: Your actual blood sugar initially was 513. After fluids and insulin your sugar was under 300. See your doctor about ongoing better blood sugar control. Justification of Admission: Justification of Admission: Justification of Admission Dx: N/A (MIRZA ASHER MD) MIRZA ASHER MD Jan 30, 2020 17:25 YASIR PATEL DO Jan 30, 2020 18:00
[2020-01-30] MEDS ORDERED: INSULIN REGULAR 100 UNIT/ML 3ML VIAL. IV ONE (17:30)
[2020-01-30] MEDS ORDERED: IV NORMAL SALINE 1,000ML 1,000 ML IV ONE ×2 (17:30)
[2020-01-30 17:56] LABS: BASO # 0.1 x10^3/uL (0.0-0.2); BASO % 1 % (0-3); EOS # 0.2 x10^3/uL (0.0-0.7); EOS % 3 % (0-3); HEMATOCRIT 40.4 % (36.0-47.0); HEMOGLOBIN 13.7 g/dL (12.0-15.5); LYMPH % 33 % (24-48); MEAN CORPUSCULAR HEMOGLOBIN 31 pg (25-35); MEAN CORPUSCULAR HGB CONC 34 g/dL (31-37); MEAN CORPUSCULAR VOLUME 92 fL (79-100); MONO # 0.3 x10^3/uL (0.0-1.1); MONO % 5 % (0-9); NEUT # 3.5 x10^3uL (1.8-7.7); NEUT % 58 % (31-73); PLATELET COUNT 211 x10^3/uL (140-400); RED CELL DISTRIBUTION WIDTH 13.9 % (11.5-14.5); WHITE BLOOD COUNT 6.1 x10^3/uL (4.0-11.0)
[2020-01-30 18:04] LABS: CALCIUM 8.9 mg/dL (8.5-10.1); GFR 57.8
[2020-01-30 18:10] LABS: ALBUMIN 3.2 g/dL (3.4-5.0); ALBUMIN/GLOBULIN RATIO 0.7 (1.0-1.7); TOTAL BILIRUBIN 0.4 mg/dL (0.2-1.0)
[2020-01-30 18:23] LABS: BILIRUBIN,URINE NEG (NEG); CLARITY,URINE CLEAR; COLOR,URINE YELLOW; GLUCOSE,URINE >=1000 mg/dL (NEG)
[2020-01-30 18:24] LABS: BACTERIA,URINE 0 /HPF (0-FEW); NITRITE,URINE NEG (NEG); RBC,URINE RARE /HPF (0-2); SQUAMOUS EPITHELIAL CELL,UR OCC /LPF; UROBILINOGEN,URINE 0.2 mg/dL (0.2 mg/dL); WBC,URINE RARE /HPF (0-4)
[2020-01-30 18:29] LABS: TOTAL PROTEIN 7.8 g/dL (6.4-8.2)
== END 2020-01-30 19:05 | disposition home or self-care (01) ==
LOC: ER 17:07
DX: E11.65 Type 2 diabetes mellitus with hyperglycemia (principal); E11.9 Type 2 diabetes mellitus without complications; E78.00 Pure hypercholesterolemia, unspecified; I10 Essential (primary) hypertension; F17.200 Nicotine dependence, unspecified, uncomplicated; F41.9 Anxiety disorder, unspecified; F31.9 Bipolar disorder, unspecified; Z87.440 Personal history of urinary (tract) infections
CPT/HCPCS: 36415; 80053; 81001; 82010; 82947; 85025; 96361; 96374; 99283; J1815; J7030

== ENCOUNTER 2020-02-08 21:30 | Observation (INO) | payer OTHER ==
[~2020-02-08] VITALS: Ht 154.9 cm; Wt 81.5 kg
[2020-02-08] MEDS ORDERED: IV NORMAL SALINE 1,000ML 1,000 ML IV SCH (21:34)
--- NOTE | 2020-02-08 21:34 | PHYS DOC ---
Past History Past Medical History: Anxiety, Bipolar, Depression, Diabetes, High Cholesterol, Hypertension, Renal Disease, Renal Failure, UTI, Other Past Surgical History: Hysterectomy, Tonsillectomy, Tubal ligation Smoking: Less than 1pk/day Alcohol Use: Occasionally Drug Use: None, Cocaine General Adult HPI: HPI: ".. I guess I am difficult diabetic.. my doctor change around my insulin to rapid.. because poor control...but now my sugar checks tonight are reading over 600.. The doctor nutrition specialist said to go to the ED..." Patient is a 55 year old female who presents with above hx and complaints of hyperglycemia. Patient denies noncompliance with diet. Denies noncompliant with her meds. Patient recently seen in the emergency room on 01 29 for similar type presentation. Patient has past medical history of type 2 diabetes, hypertension, hyperlipidemia, acute renal failure that required hemodialysis 4 years ago at [facility]. Has that past medical history of to nsillectomy tubal ligation and hysterectomy. Patient denies any intake of bad food. Patient denies any recent travel outside the [place] area. No history immunosuppression. Patient does not know her family medical history because she is adopted. Patient states she has been compliant with her meds and diet. Review of Systems: Review of Systems: Constitutional: Denies fever or chills Eyes: Denies change in visual acuity HENT: Denies nasal congestion or sore throat Respiratory: Denies cough or shortness of breath Cardiovascular: Denies chest pain or edema GI: Complains of nausea,. Denies vomiting, bloody stools or diarrhea : Denies dysuria Musculoskeletal: Denies back pain or joint pain Integument: Denies rash Neurologic: Denies headache, focal weakness or sensory changes Endocrine: Complains of hyperglycemia and polyuria Lymphatic: Denies swollen glands Psychiatric: Denies depression or anxiety Heart Score: HEART Score for Chest Pain: HEART Score for Chest Pain Response (Comments) Value History Slighlty/Non-Suspicious 0 ECG Nonspecific Repolarizatio 1 Age >45 - < 65 1 Risk Factors 1 or 2 Risk Factors 1 Troponin < Normal Limit 0 Total 3 Risk Factors: Risk Factors: DM, Current or recent (<one month) smoker, HTN, HLP, family history of CAD, obesity. Risk Scores: Score 0 - 3: 2.5% MACE over next 6 weeks - Discharge Home Score 4 - 6: 20.3% MACE over next 6 weeks - Admit for Clinical Observation Score 7 - 10: 72.7% MACE over next 6 weeks - Early Invasive Strategies Family History: Family History: Noncontributory Current Medications: Current Meds: See nursing for home meds Allergies: Allergies: Allergies Coded Allergies Type Severity Reaction Last Updated Verified No Known Drug Allergies 03/27/14 No Physical Exam: PE: Constitutional: Moderate acute distress, non-toxic appearance. [] HENT: Normocephalic, atraumatic, bilateral external ears normal, oropharynx dry, no oral exudates, nose normal. [] Eyes: PERRLA, EOMI, conjunctiva normal, no discharge. [] Neck: Normal range of motion, no tenderness, supple, no stridor. [] Cardiovascular: Tachycardia heart rate regular rhythm, no murmur [] Lungs & Thorax: Bilateral breath sounds equal apex with scattered wheezes on auscultation [] Abdomen: Bowel sounds normal, soft, no tenderness, no masses, no pulsatile masses. Obese. Old surgery scars. Skin: Warm, dry, no erythema, no rash. [] Back: No tenderness, no CVA tenderness. [] Extremities: No tenderness, no cyanosis, no clubbing, ROM intact, no edema. [] Neurologic: Alert and oriented X 3, moves extremities on request, has distal sensory function, no focal deficits noted. [] Psychologic: Affect anxious, judgement normal, mood normal. [] EKG: EKG: My dictation EKG shows a sinus rhythm at 92 bpm. Does have a slightly prolonged QT interval 382 with a QTc interval 478 bimodal P waves. [] Radiology/Procedures: Radiology/Procedures: [][address] [address] IMAGING REPORT Signed PATIENT: GIAN ROSEN LACCOUNT: [id number] : 1965 LOCATION: ER AGE: 55 SEX: F EXAM STATUS: REG ER ORD. PHYSICIAN: CURTIS DANGELO MD REASON: dm, tachy PROCEDURE: PORTABLE CHEST 1V PORTABLE CHEST 1V INDICATION: Reason: dm, tachy / Spl. Instructions: / History: . COMPARISON STUDY: 01/27/2020. FINDINGS: Lungs: Normal lung volume. No pulmonary mass or consolidation. The tracheobronchial tree and hilar structures are normal. Pleura: No pleural effusion or pneumothorax. Heart and Mediastinum: The cardiomediastinal silhouette is normal. Atherosclerosis of the thoracic aorta. IMPRESSION: No acute cardiopulmonary process. Electronically signed by: Malena Meek MD (02/08/2020 11:12 PM) [facility] DICTATED AND SIGNED BY: MALENA MEEK MD DATE: 02/08/20 4739 CC: CURTIS DANGELO MD; ROBEL SHELTON ~ Course & Med Decision Making: Course & Med Decision Making Pertinent Labs and Imaging studies reviewed. (See chart for details) Discussed presentation, testing and treatment plan with Dr. Horan. Nursing advised pt. had to be tele room and inpatient if on Insulin qtt. ? Elevated Lactic Acid- suspect secondary to Metabolic Acidosis and dehydration Impression: 1. DM - Hyperglycemia 563 2. Dehydration 3. Hyponatremia 130 4. Hypokalemia 3.2 5. Elevated LFT's AST< ALT, Alk Phos 6. Elevated Lactic Acid 2.8 [] Dragon Disclaimer: Dragon Disclaimer: This electronic medical record was generated, in whole or in part, using a voice recognition dictation system. Departure Departure: Disposition: 01 HOME/RESIDENCE PRIOR TO ADM Condition: STABLE Referrals: ROBEL SHELTON (PCP) Justification of Admission: Justification of Admission: Justification of Admission Dx: N/A Comments: hyperglycemia, hyponatremia, hypokalemia, dehydration, elevated LFT's, Lactic Acid Dragon Disclaimer This chart was dictated in whole or in part using Voice Recognition software in a busy, high-work load, and often noisy Emergency Department environment. It may contain unintended and wholly unrecognized errors or omissions. Dragon Disclaimer This chart was dictated in whole or in part using Voice Recognition software in a busy, high-work load, and often noisy Emergency Department environment. It may contain unintended and wholly unrecognized errors or omissions. CURTIS DANGELO MD Feb 08, 2020 21:34
[2020-02-08] MEDS ORDERED: INSULIN REGULAR VIAL 100 UNIT in IV NORMAL SALINE 100ML 100 ML IV ONE ×2 (22:00→23:45)
[2020-02-08 22:08] LABS: BASO # 0.1 x10^3/uL (0.0-0.2); BASO % 1 % (0-3); EOS # 0.2 x10^3/uL (0.0-0.7); EOS % 3 % (0-3); HEMATOCRIT 41.4 % (36.0-47.0); LYMPH % 40 % (24-48); MEAN CORPUSCULAR HEMOGLOBIN 31 pg (25-35); MEAN CORPUSCULAR HGB CONC 34 g/dL (31-37); MEAN CORPUSCULAR VOLUME 93 fL (79-100); MONO # 0.5 x10^3/uL (0.0-1.1); MONO % 6 % (0-9); NEUT # 3.8 x10^3uL (1.8-7.7); NEUT % 51 % (31-73); PLATELET COUNT 238 x10^3/uL (140-400); RED BLOOD COUNT 4.44 x10^6/uL (3.50-5.40); WHITE BLOOD COUNT 7.5 x10^3/uL (4.0-11.0)
[2020-02-08 22:26] LABS: BGAS PH 7.33 (7.35-7.45)
[2020-02-08 22:30] LABS: POTASSIUM 3.2 mmol/L (3.5-5.1)
[2020-02-08 22:33] LABS: ALBUMIN 3.4 g/dL (3.4-5.0); CALCIUM 9.6 mg/dL (8.5-10.1); CREATININE 1.5 mg/dL (0.6-1.0); DIRECT BILIRUBIN 0.2 mg/dL (0.0-0.2); GFR 36.2; MAGNESIUM 1.8 mg/dL (1.8-2.4); TOTAL BILIRUBIN 0.3 mg/dL (0.2-1.0); TOTAL PROTEIN 8.4 g/dL (6.4-8.2)
[2020-02-08] MEDS ORDERED: IV RINGERS SOLUTION,LACTATED 1,000 ML IV ONE (22:45)
[2020-02-08] MEDS ORDERED: POTASSIUM CHLORIDE 20 MEQ TABLET.ER. PO ONE (22:45)
[2020-02-08] MEDS ORDERED: REG INSULIN (22:53)
[2020-02-08] MEDS ORDERED: INSU100I13 SQ (22:53)
[2020-02-08] MEDS ORDERED: LOVA40TA2 PO (22:53)
--- NOTE | 2020-02-08 23:14 | RAD ---
PORTABLE CHEST 1V INDICATION: Reason: dm, tachy / Spl. Instructions: / History: . COMPARISON STUDY: 01/27/2020. FINDINGS: Lungs: Normal lung volume. No pulmonary mass or consolidation. The tracheobronchial tree and hilar structures are normal. Pleura: No pleural effusion or pneumothorax. Heart and Mediastinum: The cardiomediastinal silhouette is normal. Atherosclerosis of the thoracic aorta. IMPRESSION: No acute cardiopulmonary process. Electronically signed by: Tripp Meek MD (02/08/2020 11:12 PM) [facility]
[2020-02-08] MEDS ORDERED: IV RINGERS SOLUTION,LACTATED 1,000 ML IV SCH (23:30)
[2020-02-08] MEDS ORDERED: ACETAMINOPHEN 325 MG TABLET PO PRN (23:30)
[2020-02-08] MEDS ORDERED: ONDANSETRON PF 4 MG/2 ML VIAL. IVP PRN (23:30)
[2020-02-08] MEDS: IV RINGERS SOLUTION,LACTATED 1,000 ML IV SCH (23:30)
--- NOTE | 2020-02-08 23:40 | EKG ---
[address] [address] Test Date: 2020-02-08 Test Time: 21:44:18 Pat Name: GIAN ROSEN Department: Room: Gender: F Commodity Loan Clerk: : 1965 Requested By: CURTIS DANGELO Order Number: [id number] Reading MD: Measurements Intervals [place] Rate: 92 P: 32 [place]: 146 QRS: 14 QRSD: 94 T: 36 QT: 382 QTc: 478 Interpretive Statements SINUS RHYTHM LEFT ATRIAL ABNORMALITY PROLONGED QT ABNORMAL ECG RI6.02 No previous ECG available for comparison
[2020-02-08] MEDS ORDERED: SODIUM BICARB ADULT 8.4% 50 MEQ/50 ML DISP.SYRIN. IV ONE (23:45)
[2020-02-09 00:36] VITALS: BP 126/70
[2020-02-09] MEDS ORDERED: INSU100I11 SQ ×2 (01:01)
[2020-02-09 04:07] LABS: BARBITURATES NEG (NEG); BENZODIAZEPINES NEG (NEG); CANNABINOIDS NEG (NEG); COCAINE NEG (NEG); METHADONE NEG (NEG); OPIATES NEG (NEG); PHENCYCLIDINE NEG (NEG)
[2020-02-09 04:11] LABS: AMPHETAMINE/METHAMPHETAMINE NEG (NEG)
[2020-02-09] MEDS: IV RINGERS SOLUTION,LACTATED 1,000 ML IV SCH ×2 (04:31→09:30)
[2020-02-09 05:00] LABS: BASO # 0.1 x10^3/uL (0.0-0.2); BASO % 1 % (0-3); EOS # 0.2 x10^3/uL (0.0-0.7); EOS % 3 % (0-3); HEMATOCRIT 36.7 % (36.0-47.0); HEMOGLOBIN 12.7 g/dL (12.0-15.5); LYMPH % 48 % (24-48); MEAN CORPUSCULAR HEMOGLOBIN 32 pg (25-35); MEAN CORPUSCULAR HGB CONC 35 g/dL (31-37); MEAN CORPUSCULAR VOLUME 92 fL (79-100); MONO # 0.3 x10^3/uL (0.0-1.1); MONO % 6 % (0-9); NEUT # 2.7 x10^3uL (1.8-7.7); NEUT % 43 % (31-73); PLATELET COUNT 209 x10^3/uL (140-400); RED BLOOD COUNT 4.01 x10^6/uL (3.50-5.40); RED CELL DISTRIBUTION WIDTH 13.5 % (11.5-14.5); WHITE BLOOD COUNT 6.2 x10^3/uL (4.0-11.0)
[2020-02-09] MEDS ORDERED: IPRATRPIUM/ALBUTEROL 0.5/2.5MG 3 ML NEBU. ONE (05:01)
[2020-02-09 05:05] LABS: CALCIUM 8.8 mg/dL (8.5-10.1); GFR 57.8; POTASSIUM 3.2 mmol/L (3.5-5.1)
[2020-02-09 05:12] VITALS: BP 132/64
[2020-02-09] MEDS ORDERED: IPRATRPIUM/ALBUTEROL 0.5/2.5MG 3 ML NEBU. NEB SCH (08:00)
--- NOTE | 2020-02-09 10:15 | HP ---
ADMIT DATE: 02/09/2020 ATTENDING PHYSICIAN: Dr. Garcia. CHIEF COMPLAINT: High blood sugars. HISTORY OF PRESENT ILLNESS: The patient is a pleasant 55-year-old female with a questionable type 1 versus type 2 diabetes. She started taking treatment when she was in her mid 30s. She is insulin-dependent. She has been followed by Hina Borja at the clinic. She had issues with her insurance company getting her regular insulin she ran out for about a week. In the ED, her sugars were over 600. She had an early diabetic ketoacidosis. She was admitted in for uncontrolled diabetes due to poor compliance due to lack of regular insulin. PAST MEDICAL HISTORY: Significant for the insulin-dependent diabetes mellitus. She had acute renal failure 4 years ago requiring hemodialysis. She has essential hypertension, hyperlipidemia and COPD due to continued tobacco abuse. The patient is adopted. She does not know her family history. SOCIAL HISTORY: She is a smoker, half a pack or less a day. No significant alcohol or drug use. ALLERGIES: She has no recorded drug allergies. CURRENT MEDICATIONS: Reviewed. She was supposed to be taking 12 units of regular before breakfast and lunch and 17 units of regular before supper and 30 units of Lantus at bedtime. In addition, she is on carvedilol 3.125 mg b.i.d., Prozac 20 mg daily, lovastatin 50 mg daily and insulin regimen as prescribed. REVIEW OF SYSTEMS: Significant for some polydipsia. No fevers, chills, sweats, COVID exposure, chest pain, palpitations, nausea. All other systems reviewed and turned to be negative. PHYSICAL EXAMINATION: GENERAL: When I saw her, this is a pleasant, middle-aged female. INITIAL VITAL SIGNS: Showed a blood pressure 122/81, pulse is 92 and regular. She was afebrile, oxygen saturation 96% on room air. HEENT: Head is without trauma. Pupils are reactive. Sclerae nonicteric. The oropharynx is clear. NECK: Supple, no bruits identified. LUNGS: Otherwise clear. CARDIOVASCULAR: Showed regular heart tones. No obvious gallops. Peripheral pulses are palpable and full. ABDOMEN: Soft, scaphoid, nontender, no organomegaly. Bowel sounds were normoactive. EXTREMITIES: Showed no cyanosis or edema. NEUROLOGIC: Focally intact. No deficits. PERTINENT LABORATORY STUDIES: Admission blood sugar was over 600. Her hemoglobin is 12.7 g/dL with white count of 6200. Potassium is 3.2 mEq. This will be followed up as an outpatient. Creatinine is 1.0 mg/dL. ASSESSMENT: 1. This 55-year-old female has poorly controlled type 2 diabetes. 2. Early diabetic ketoacidosis with slightly elevated anion gap of 18. 3. Essential hypertension. 4. Hyperlipidemia. 5. History of type 2 diabetes mellitus. PLAN: 1. Admit to the inpatient unit. 2. Insulin drip. 3. Serial glucometers. 4. We will institute her regular and Lantus regimen once stable. CHUYITA GARCIA MD DR: YURIDIA/chico JOB#: [id number] / [id number] HINA Patel
--- NOTE | 2020-02-09 10:23 | DS ---
DATE OF DISCHARGE: 02/09/2020 ATTENDING PHYSICIAN: Dr. Garcia. FINAL DISCHARGE DIAGNOSES: 1. Uncontrolled diabetes. 2. Type 2 diabetes mellitus. 3. Early diabetic ketoacidosis, corrected. 4. Essential hypertension. 5. Hyperlipidemia. 6. Tobacco addiction. HISTORY OF PRESENT ILLNESS: The patient is a very pleasant 55-year-old female, type 2 diabetic, that has been insulin-dependent. She was in the process of getting a scheduled dose of regular insulin, but for insurance purposes, she did not get her regular insulin this past week. She was using only the Lantus. Her sugars at home were over 600. She had an anion gap of 18. She was admitted then with early diabetic ketoacidosis and uncontrolled diabetes. PHYSICAL EXAMINATION: Please see the dictated note. PERTINENT LABORATORY AND X-RAY STUDIES: Admission hemoglobin was 12.7 g/dL with white count of 6200. Subsequent blood sugars were drawn, initially it was over 600, then it came down to 238, 149, 120, 126 and 122 respectively. Her potassium is 3.2 mEq. She is asymptomatic. This is due to the pH shifts from the acidosis and this will be followed up as an outpatient. COURSE IN THE HOSPITAL: The patient felt better. She received IV hydration, insulin drip and the diet was advanced. She felt well. She wanted to go home. She tells me that she now has gotten her insurance regular insulin. She will follow the prescribed regimen, this includes 12 units of regular insulin before breakfast and lunch and 17 units of regular before supper and 30 units of Lantus insulin at night. She has bottles of both short and long-acting insulin already. In addition, she will continue her Coreg, pravastatin and Prozac dose is unchanged. I suggested a followup visit with Hina Borja in the clinic next week. The patient was then discharged from the hospital in stable condition with explicit instructions on followup care. CHUYITA GARCIA MD DR: YURIDIA/[place] JOB#: [id number] / [id number] HINA Patel
[2020-02-09 10:40] VITALS: BP 144/74
[2020-02-09 11:11] LABS: TRIGLYCERIDES 1392 mg/dL (0-150); VLDLC 278 mg/dL (0-40)
[2020-02-09 11:13] LABS: THYROID STIM HORMONE (TSH) 4.718 uIU/mL (0.358-3.740)
== END 2020-02-09 10:49 | disposition home or self-care (01) ==
LOC: ER 21:30 → INTOOBSV 21:31 → ICU 21:31
PROVIDERS: ADMIT Hospitalist; ATTEND Hospitalist
DX: E11.10 Type 2 diabetes mellitus with ketoacidosis without coma (principal); E87.1 Hypo-osmolality and hyponatremia; I10 Essential (primary) hypertension; E86.0 Dehydration; E87.6 Hypokalemia; E78.5 Hyperlipidemia, unspecified; N19 Unspecified kidney failure; J44.9 Chronic obstructive pulmonary disease, unspecified; F17.210 Nicotine dependence, cigarettes, uncomplicated; Z79.4 Long term (current) use of insulin; Z79.899 Other long term (current) drug therapy
CPT/HCPCS: 36415; 36600; 71045; 80048; 80061; 80076; 80307; 82550; 82803; 82947; 83605; 83690; 83735; 83880; 84443; 84484; 85025; 85610; 85730; 86705; 86709; 86803; 87040; 87340; 93005; 96361; 96365; 96375; 99285; G0378; G0379; J1815; J7030; J7120